=== PATIENT | male | born 1945 | race Caucasian/White ===

== ENCOUNTER 2016-11-20 20:08 | Emergency (ER) | payer MEDICARE, OTHER ==
[~2016-11-20] VITALS: Ht 177.8 cm; Wt 102.1 kg
[2016-11-20] MEDS ORDERED: LISINOPRIL20 MG PO (20:20)
[2016-11-20] MEDS ORDERED: HYDROCHLOROTHIA25 MG PO (20:20)
[2016-11-20] MEDS ORDERED: LOVASTATIN20 MG PO (20:20)
[2016-11-20] MEDS ORDERED: GABAPENTIN300 MG PO (20:20)
[2016-11-20] MEDS ORDERED: NORCO 5-325 TA1 EACH PO (21:24)
== END 2016-11-20 21:50 | disposition home or self-care (01) ==
LOC: ED 20:08
DX: S20.212A Contusion of left front wall of thorax, initial encounter (principal); I10 Essential (primary) hypertension; E78.00 Pure hypercholesterolemia, unspecified; Z86.711 Personal history of pulmonary embolism; Z79.899 Other long term (current) drug therapy; W01.0XXA Fall on same level from slipping, tripping and stumbling without subsequent striking against object, initial encounter
CPT/HCPCS: 71010; 99283

== ENCOUNTER 2018-10-26 10:25 | Emergency (ER) | payer MEDICARE, OTHER ==
[~2018-10-26] VITALS: Ht 177.8 cm; Wt 102.1 kg
[~2018-10-26 10:25] MED LIST: GABAPENTIN300 MG PO; HYDROCHLOROTHIA25 MG PO; LISINOPRIL20 MG PO; LOVASTATIN20 MG PO; NORCO 5-325 TA1 EACH PO
[2018-10-26] MEDS ORDERED: ROSUVASTATIN CA20 MG PO (11:16)
[2018-10-26] MEDS ORDERED: DULOXETINE HCL20 MG PO (11:16)
[2018-10-26] MEDS ORDERED: ALPHA LIPOIC A200 MG PO (11:18)
[2018-10-26] MEDS ORDERED: CURCUMIN1 GM PO (11:18)
[2018-10-26] MEDS ORDERED: VITAMIN D32000 UNIT PO (11:18)
[2018-10-26] MEDS ORDERED: ARTHRITIS PAIN650 M3 PO (11:19)
== END 2018-10-26 13:08 | disposition home or self-care (01) ==
LOC: ED 10:25
DX: R07.89 Other chest pain (principal); I10 Essential (primary) hypertension; Z79.899 Other long term (current) drug therapy
CPT/HCPCS: 71046; 80053; 85025; 85379; 99285-25

== ENCOUNTER 2022-04-04 08:46 | Day surgery (SDC) | payer MEDICARE, OTHER ==
[~2022-04-04] VITALS: Ht 177.8 cm; Wt 84.1 kg
[~2022-04-04 08:46] MED LIST changes: +ALPHA LIPOIC A200 MG PO; +ARTHRITIS PAIN650 M3 PO; +CURCUMIN1 GM PO; +DULOXETINE HCL20 MG PO; +ROSUVASTATIN CA20 MG PO; +VITAMIN D32000 UNIT PO
--- NOTE | 2022-04-04 14:02 | NUR ---
04/04/22 1402 Dipti Luevano 1312 PT ARRIVED IN PACU NON RESPONSIVE TO NOXIOUS STIMULI WITH OPA IN PLACE. 1325 PT REACTIVE. OPA REMOVED. 1326 C/O URGE TO VOID. URINAL IN PLACE. VOIDED 50ML RED COLORED URINE. 1340 SIPPING ON WATER. 1345 C/O URGE TO VOID. VOIDED 50ML OF RED COLORED URINE. 1350 GETTING DRESSED WITH STAND BY ASSIST. 140O DC INSTRUCTIONS GIVEN. ALL QUESTIONS ANSWERED. LEFT VIA W/C WITH URINAL IN BAG.
--- NOTE | 2022-04-06 14:05 | OR ---
[facility] [address], [place] [address] Signed DATE OF OPERATION: 04/04/2022 SURGEON: Noemi Bruce MD PREOPERATIVE DIAGNOSIS: Bilobar benign prostatic hyperplasia with lower urinary tract symptoms. POSTOPERATIVE DIAGNOSIS: Bilobar benign prostatic hyperplasia with lower urinary tract symptoms. NAMES OF PROCEDURE: UroLift prostatic urethral lift. ANESTHESIA: Monitored anesthesia care. ESTIMATED BLOOD LOSS: 10 mL. COMPLICATIONS: None. SPECIMENS: None. INDICATIONS: Mr. Bruce is a very pleasant 76-year-old gentleman, who recently presented to me with complaints of a weak force of stream along with urinary hesitancy and nocturia. He had tried and failed previous medications such as Flomax due to dizziness. He recently underwent diagnostic cystoscopy, which revealed moderate lateral lobe hypertrophy with no significant median bar. After a discussion of his options, he elected to undergo the UroLift procedure. The risks and benefits of the procedure were discussed in detail with the patient and he has agreed to proceed. OPERATIVE FINDINGS: 1. On cystoscopy, there is no evidence of any suspicious masses, lesions, or stones. Bilateral ureteral orifices are in their normal anatomic location. 2. A total of four UroLift implants were placed with two on the left and two on the right. The placement of the implants was performed with some difficulty on the right lobe of the prostate. I experienced a bone strike attempting to place one of the Electronically Signed By: NOEMI BRUCE MD 04/06/22 1405 PATIENT NAME: CELINE BRUCE OPERATIVE REPORT DATE OF : 41 REPORT #: [id number] PHYSICIAN: NOEMI BRUCE MD PCP: GAVIOTA RAY MD REPORT IS CONFIDENTIAL AND NOT TO BE RELEASED WITHOUT AUTHORIZATION [facility] [address], [place] [address] Signed sutures just proximal to the verumontanum. Another attempt at placement in the right lobe near the verumontanum resulted in capsular tab pull-through. This was likely secondary to anatomic variation of the prostate in this area. Overall placement of the implants was successful and was performed with minimal bleeding. DESCRIPTION OF PROCEDURE: The patient was brought to the operating room and was identified with a surgical pause. He was transferred from the [facility] to the operating room table, where MAC anesthesia was induced. He was then placed in the dorsal lithotomy position and his genitalia prepped and draped in the standard sterile fashion. A 20-[place] cystoscope was inserted into the urethral meatus guided by a visual obturator. Inspection of the prostatic urethra was notable for obstruction present as a result of the enlarged lateral lobes of the prostate. The visual obturator was replaced with a UroLift 2 System delivery device. The first treatment site was the patient's left side approximately 1.5 cm distal to the bladder neck. The UroLift 2 System implantation steps were completed as indicated in the product documentation. The capsular tab was successfully deployed. The urethral end piece was successfully affixed to the suture and the suture was cut. The delivery device was then readvanced into the bladder and then removed from the sheath. The implant cartridge was removed and the delivery device was replaced with the Scope seal and the assembled device was reinserted. The implant location opening effect was confirmed cystoscopically. The same steps of the procedure were then performed again on the left side and then on the right side, approximately 1.5 cm from the bladder neck followed by one more additional implant just proximal to the verumontanum. Again, I did experience two suture implant failures at the level of the right lobe of the prostate just proximal to the verumontanum. Please see the above operative findings. At the end of the procedure, a final cystoscopy was conducted first to inspect the location and state of each implant and second to confirm the presence of a continuous anterior channel from the verumontanum to the bladder neck. This channel was present through the prostatic urethra with irrigation flow turned off. An indwelling catheter was inserted into the patient's bladder and filled with 10 mL of sterile fluid. The patient tolerated the procedure well without any complication. He will now be transferred to the postanesthesia care unit in stable condition. DISPOSITION: I discussed the details of today's procedure with the patient's and answered all of her questions. The patient will be sent home with five days worth of Cipro today for antibiotic prophylaxis along with Pyridium 200 mg p.o. up to t.i.d. p.r.n. dysuria as well as oxybutynin IR 5 mg b.i.d. p.r.n. frequency. He will be scheduled to return to clinic to see me in May with a postvoid residual for his first postoperative visit. He will be going home with his indwelling Edwards catheter this evening and will return to Day Surgery tomorrow to have his Edwards catheter removed per protocol. Electronically Signed By: NOEMI BRUCE MD 04/06/22 1405 PATIENT NAME: CELINE BRUCE OPERATIVE REPORT DATE OF : 41 REPORT #: [id number] PHYSICIAN: NOEMI BRUCE MD PCP: GAVIOTA RAY MD REPORT IS CONFIDENTIAL AND NOT TO BE RELEASED WITHOUT AUTHORIZATION [facility] [address] [facility] [address] [place], [place] [address] Signed MD JOSE F Stephenson/MODL /[id number] Copies: ~ Electronically Signed By: NOEMI BRUCE MD 04/06/22 1405 PATIENT NAME: CELINE BRUCE OPERATIVE REPORT DATE OF : 41 REPORT #: [id number] PHYSICIAN: NOEMI BRUCE MD PCP: GAVIOTA RAY MD REPORT IS CONFIDENTIAL AND NOT TO BE RELEASED WITHOUT AUTHORIZATION
== END 2022-04-04 14:00 | disposition home or self-care (01) ==
LOC: DS 08:46
PROVIDERS: ATTEND Urology
PROC: 0T7D8DZ Dilation of Urethra with Intraluminal Device, Via Natural or Artificial Opening Endoscopic (ICD-10-PCS; principal; 2022-04-04 09:45)
DX: N40.1 Benign prostatic hyperplasia with lower urinary tract symptoms (principal); Z88.8 Allergy status to other drugs, medicaments and biological substances; R31.29 Other microscopic hematuria
CPT/HCPCS: J0690; J2250; J2704; J3010; J7121